=== PATIENT | male | born 1960 | race African-American/Black ===

== ENCOUNTER 2017-06-28 21:22 | Inpatient (IN) | payer BC ==
[~2017-06-28] VITALS: Ht 177.8 cm; Wt 80.5 kg
[~2017-06-28 21:22] MED LIST: AMLODIPINE BESYL5 MG PO; DAILY MULTIPLE1 EACH PO; IRON325 M1 PO; LISINOPRIL10 MG PO
[2017-06-29 06:12] VITALS: BP 136/79
[2017-06-29 10:57] VITALS: BP 143/88
[2017-06-29 15:39] VITALS: BP 131/87
[2017-06-29 17:44] VITALS: BP 140/91
[2017-06-29 20:32] VITALS: BP 132/83
[2017-06-29 21:00] VITALS: BP 126/85
[2017-06-30] VITALS (7 sets, daily range): BP systolic 114–142; BP diastolic 61–83
[2017-06-30 08:35] LABS: HEMATOCRIT 41.8 % (38.0-50.0); MCV 92.5 FL (86-99)
[2017-06-30] MEDS ORDERED: DOCUSATE SODIU100 MG PO (09:12)
[2017-06-30] MEDS ORDERED: OXYCODONE HCL5 MG PO (09:12)
[2017-06-30] MEDS ORDERED: ELIQUIS2.5 MG PO (09:12)
[2017-07-01 04:20] VITALS: BP 124/76
[2017-07-01 06:36] LABS: HEMATOCRIT 39.7 % (38.0-50.0); MCV 92.3 FL (86-99)
[2017-07-01 08:01] VITALS: BP 131/84
[2017-07-01 12:09] VITALS: BP 142/78
== END 2017-07-01 15:06 | DRG 470 ==
LOC: ENRESERV 21:22 → 2SOUTH 06-29 05:33 → 3WEST 06-29 05:33 → 2SOUTH 06-29 08:50 → 3WEST 06-29 10:31 → 2SOUTH 06-29 11:37 → 3WEST 07-01 15:06
PROVIDERS: Physician Assistant
PROC: 0SRD0J9 Replacement of Left Knee Joint with Synthetic Substitute, Cemented, Open Approach (ICD-10-PCS; principal; 2017-06-29)
DX: M17.12 Unilateral primary osteoarthritis, left knee (principal); F17.200 Nicotine dependence, unspecified, uncomplicated; I10 Essential (primary) hypertension; M65.9 Synovitis and tenosynovitis, unspecified; M79.672 Pain in left foot; R20.0 Anesthesia of skin
CPT/HCPCS: 85014; 85018; 93971; C1713; J0131; J0690; J1170; J1885; J2175; J2250; J2405; J3010; J7050; J7120; L1820; S0020